=== PATIENT | male | born 1960 | race Caucasian/White ===

== ENCOUNTER 2020-10-28 05:48 | Day surgery (SDC) | payer OTHER ==
[2020-10-28] MEDS ORDERED: Lactated Ringers 1,000 ML IV SCH (07:00)
[2020-10-28] MEDS ORDERED: DIPRIVAN 200 MG/20 ML IV ONE ×2 (08:42→08:54)
--- NOTE | 2020-10-28 09:35 | OP ---
SURGERY DATE/TIME: 10/28/2020 0845 PREOPERATIVE DIAGNOSES: 1) Screening colonoscopy. 2) Family history of colon cancer. POSTOPERATIVE DIAGNOSES: 1) Sigmoid polyps x2. 2) Rectal polyps x2. PROCEDURE: Colonoscopy. SURGEON: Sonny Montero M.D. ANESTHESIA: MAC by Siddhartha Griffiths CRNA. ESTIMATED BLOOD LOSS: Minimal. SPECIMENS: There are four cold forceps polypectomies. DESCRIPTION OF PROCEDURE: After informed written consent was obtained, the patient was taken to the endoscopy suite. She was placed in left lateral decubitus position. Anesthesia was titrated to desired level of consciousness. A digital rectal exam showed normal sphincter tone and no internal lesions. The scope was inserted into the rectum and sequentially the entire colonic mucosa was traversed. The level of cecum was reached and verified with direct visualization of the ileocecal valve. Upon withdrawal there were two very small sessile polyps in the sigmoid colon region which were grasped with forceps and removed with minimal bleeding and sent for pathology testing. Likewise in the proximal rectum there were two very small, flat sessile polyps which were removed with cold forceps with minimal bleeding. Prior to withdrawal retroflexion showed no internal lesions. The scope was removed. The patient was transferred to the recovery room in good condition.
[2020-10-28 09:59] VITALS: BP 145/86; PULSE 58; O2SAT 96
== END 2020-10-28 10:05 | disposition home or self-care (01) ==
LOC: SDC 05:48
PROVIDERS: ATTEND Family Medicine
DX: Z12.11 Encounter for screening for malignant neoplasm of colon (principal); Z80.0 Family history of malignant neoplasm of digestive organs; D12.8 Benign neoplasm of rectum
CPT/HCPCS: 88305; J2704

== ENCOUNTER 2023-07-26 15:04 | Day surgery (SDC) | payer OTHER ==
[2023-07-26] MEDS ORDERED: XYLOCAINE-MPF 1% 5ML SDV IJ ONE (15:05)
[2023-07-26] MEDS ORDERED: Depo-Medrol 40 MG/ML IM ONE (15:05)
[2023-07-26] MEDS ORDERED: BUPIVACAINE 0.5% VIAL IJ ONE (15:05)
--- NOTE | 2023-07-26 16:47 | XRAY ---
26 seconds of fluoroscopy was used in surgery for a left intra-articular knee injection.
--- NOTE | 2023-07-26 16:47 | XRAY ---
Indication: Left knee injection. Intraoperative fluoroscopy provided for 26 seconds. 2 digital spot image submitted for interpretation demonstrates needle tip projecting over the left femur intercondylar notch. Small amount of contrast injected for needle tip placement. Correlate with intraoperative findings/report.
== END 2023-07-26 15:46 | disposition home or self-care (01) ==
LOC: SDC-PAIN 15:04
PROVIDERS: ATTEND Psychiatry & Neurology Pain Medicine
DX: M17.12 Unilateral primary osteoarthritis, left knee (principal)
CPT/HCPCS: 20610; 73560; 77002; J1030; Q9966

== ENCOUNTER 2023-09-13 15:10 | Day surgery (SDC) | payer OTHER ==
[2023-09-13] MEDS ORDERED: BUPIVACAINE 0.5% VIAL IJ ONE (15:11)
[2023-09-13] MEDS ORDERED: LIDOCAINE HCL 1% 50 MG/5 ML VL PF IJ ONE (15:11)
[2023-09-13] MEDS ORDERED: Depo-Medrol 40 MG/ML IM ONE (15:11)
--- NOTE | 2023-09-13 18:47 | XRAY ---
Indication: Right SI joint injection Intraoperative fluoroscopy provided for 12 seconds. Single digital spot image submitted for interpretation demonstrates posterior needle tip projecting over the right SI joint with small amount of contrast injected for needle tip placement. Correlate with intraoperative findings/report.
--- NOTE | 2023-09-14 08:49 | XRAY ---
12 seconds of fluoroscopy was used in surgery for a right sacroiliac joint injection.
== END 2023-09-13 17:05 | disposition home or self-care (01) ==
LOC: SDC-PAIN 15:10
PROVIDERS: ATTEND Psychiatry & Neurology Pain Medicine
DX: M46.1 Sacroiliitis, not elsewhere classified (principal)
CPT/HCPCS: 27096; 72170; 77002; J1010; J2001; Q9966; G0260

== ENCOUNTER 2023-11-22 07:59 | Day surgery (SDC) | payer OTHER ==
[2023-11-22] MEDS ORDERED: SYNVISC 16 MG/2 ML SYRINGE IU ONE (08:00)
[2023-11-22] MEDS ORDERED: LIDOCAINE HCL 1% 50 MG/5 ML VL PF IJ ONE (08:00)
--- NOTE | 2023-11-22 10:56 | XRAY ---
Indication: Left knee injection. Intraoperative fluoroscopy provided for 11 seconds. Single digital spot image submitted for interpretation demonstrates needle tip projecting over left femur intercondylar notch. Small amount of contrast injected for needle tip placement. Correlate with intraoperative findings/report.
--- NOTE | 2023-11-22 13:24 | XRAY ---
11 seconds of fluoroscopy was used in surgery for a left intra-articular knee injection.
== END 2023-11-22 10:36 | disposition home or self-care (01) ==
LOC: SDC-PAIN 07:59
PROVIDERS: ATTEND Psychiatry & Neurology Pain Medicine
DX: M17.12 Unilateral primary osteoarthritis, left knee (principal)
CPT/HCPCS: 20610; 73560; 77002; J2001; J7325; Q9966

== ENCOUNTER 2023-11-29 15:26 | Day surgery (SDC) | payer OTHER ==
[2023-11-29] MEDS ORDERED: LIDOCAINE HCL 1% 50 MG/5 ML VL PF IJ ONE (15:27)
[2023-11-29] MEDS ORDERED: SYNVISC 16 MG/2 ML SYRINGE IU ONE (15:27)
--- NOTE | 2023-11-29 19:12 | XRAY ---
Indication: Left knee injection. Intraoperative fluoroscopy provided for 8 seconds. Single digital spot images submitted for interpretation demonstrates needle tip projecting over left femur intercondylar notch. Small amount of contrast injected for needle tip placement. Correlate with intraoperative findings/report.
--- NOTE | 2023-12-01 07:57 | XRAY ---
8 seconds of fluoroscopy was used in surgery for a left intra-articular knee injection.
== END 2023-11-29 18:00 | disposition home or self-care (01) ==
LOC: SDC-PAIN 15:26
PROVIDERS: ATTEND Psychiatry & Neurology Pain Medicine
DX: M17.12 Unilateral primary osteoarthritis, left knee (principal)
CPT/HCPCS: 20610; 73560; 77002; J2001; J7325; Q9966

== ENCOUNTER 2023-12-06 15:16 | Day surgery (SDC) | payer OTHER ==
--- NOTE | 2023-12-06 20:28 | XRAY ---
Indication: Left knee injection. Intraoperative fluoroscopy provided for 20 seconds. 3 digital spot image submitted for interpretation demonstrates needle tip projecting over left femur intercondylar notch. Small amount of contrast injected for needle tip placement. Correlate with intraoperative findings/report.
--- NOTE | 2023-12-07 09:11 | XRAY ---
23 seconds of fluoroscopy was used in surgery for a left intra-articular knee injection.
== END 2023-12-06 18:48 | disposition home or self-care (01) ==
LOC: SDC-PAIN 15:16
PROVIDERS: ATTEND Psychiatry & Neurology Pain Medicine
DX: M17.12 Unilateral primary osteoarthritis, left knee (principal)
CPT/HCPCS: 20610; 73560; 77002; Q9966

== ENCOUNTER 2024-02-14 13:28 | Day surgery (SDC) | payer OTHER ==
[2024-02-14] MEDS ORDERED: Depo-Medrol 40 MG/ML IM ONE (13:29)
[2024-02-14] MEDS ORDERED: LIDOCAINE HCL 1% 50 MG/5 ML VL PF IJ ONE (13:29)
[2024-02-14] MEDS ORDERED: BUPIVACAINE 0.5% VIAL IJ ONE (13:29)
--- NOTE | 2024-02-14 20:10 | XRAY ---
Indication: Right SI joint injection Intraoperative fluoroscopy provided for 23 seconds. 2 digital spot image submitted for interpretation demonstrates posterior needle tip projecting over the right SI joint. Small amount of contrast injected for needle tip placement. Correlate with intraoperative findings/report.
--- NOTE | 2024-02-16 14:55 | XRAY ---
23 seconds of fluoroscopy used in surgery for a right SI joint injection.
== END 2024-02-14 16:22 | disposition home or self-care (01) ==
LOC: SDC-PAIN 13:28
PROVIDERS: ATTEND Psychiatry & Neurology Pain Medicine
DX: M46.1 Sacroiliitis, not elsewhere classified (principal)
CPT/HCPCS: 27096; 72170; 77002; J2001; Q9966; G0260

== ENCOUNTER 2025-02-22 11:08 | Emergency (ER) | payer OTHER ==
--- NOTE | 2025-02-22 11:23 | ERPHSYRPT ---
- History of Present Illness Time Seen by Provider: 02/22/25 11:23 Source: patient, family Physician History: This is an overweight 64-year-old white male patient who was mowing his lawn yesterday and felt something hit his right eye and has been irritated ever since. Patient has redness of his eye and has some tearing present. The area of burning and discomfort is the 9 o'clock position of the right eye. Timing/Duration: yesterday Location: right eye Severity: mild (To moderate) Apparent Injury: possibly Associated Symptoms: burning, sensitivity to light, redness, foreign body sensation Visual Assistive Devices: None Allergies/Adverse Reactions: No Known Drug Allergies Allergy (Verified 02/22/25 11:27) Home Medications: Amlodipine Besylate 1 tab PO DAILY 10/19/20 [History] Chlorthalidone 1 tab PO DAILY 10/19/20 [History] Hydralazine HCl 50 mg PO TID 10/19/20 [History] Labetalol HCl 1 tab PO BID 10/19/20 [History] Meloxicam 15 mg PO DAILY 10/19/20 [History] Tamsulosin HCl 0.4 mg [Flomax 0.4 MG] 1 cap PO DAILY 10/19/20 [History] Valsartan [Diovan] 1 tab PO DAILY 10/19/20 [History] Hx Tetanus, Diphtheria Vaccination/Date Given: (UNKNOWN) Hx Influenza Vaccination/Date Given: Yes Hx Pneumococcal Vaccination/Date Given: Yes Travel Risk - International Travel Have you traveled outside of the country in past 3 weeks: No - Emerging Infectious Disease Are you exhibiting symptoms associated with any current EIDs: No - Review of Systems Constitutional: No Symptoms Eyes: Eye Redness (Right eye), Tearing (Right eye) Ears, Nose, & Throat: No Symptoms Respiratory: No Symptoms Cardiac: No Symptoms Abdominal/Gastrointestinal: No Symptoms Genitourinary Symptoms: No Symptoms Musculoskeletal: No Symptoms Skin: No Symptoms Neurological: No Symptoms Psychological: No Symptoms Endocrine: No Symptoms Hematologic/Lymphatic: No Symptoms Immunological/Allergic: No Symptoms All Other Systems: Reviewed and Negative - Past Medical History Pertinent Past Medical History: Yes Respiratory History: No Pertinent History - Past Surgical History Past Surgical History: No - Social History Smoking Status: Never smoker Exposure to second hand smoke: No - Nursing Vital Signs Nursing Vital Signs: Initial Vital Signs Temperature 97.6 F 02/22/25 11:20 Pulse Rate 74 02/22/25 11:20 Respiratory Rate 16 02/22/25 11:20 Blood Pressure 130/69 02/22/25 11:20 O2 Sat by Pulse Oximetry 99 02/22/25 11:20 Pain Scale Pain Intensity 5 - Physical Exam General Appearance: no apparent distress, alert, obese Eye Exam: right eye: conjunctival inflammation (Conjunctivitis), corneal abrasion (9 o'clock position), left eye: normal inspection, bilateral eye: PERRL, EOMI Ears, Nose, Throat Exam: normal ENT inspection, moist mucous membranes Neck Exam: normal inspection, non-tender, supple Respiratory Exam: airway intact, No chest tenderness, No respiratory distress Gastrointestinal Exam: No tenderness Extremity Exam: normal inspection, normal range of motion, pelvis stable Neurologic: alert, oriented x 3, cooperative, 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, normal mood/affect, nml cerebellar function, nml station & gait, sensation nml Skin Exam: normal color, warm, dry Lymphatic: No adenopathy SpO2 Interpretation: normal O2 Delivery: Room Air - Course Nursing assessment & vital signs reviewed: Yes Ordered Tests: Medication Summary Discontinued Medications Generic Name Dose Route Start Last Admin Trade Name Freq PRN Reason Stop Dose Admin Fluorescein Sodium 1 mg 02/22/25 11:41 02/22/25 11:43 Fluorescein Sodium 1 Mg/Strip Strip OP 02/22/25 11:42 1 mg STAT ONE Administration Fluorescein Sodium Confirm 02/22/25 11:42 Fluorescein Sodium 1 Mg/Strip Strip Administered 02/22/25 11:43 Dose 1 mg OP .STK-MED ONE Tetracaine HCl 4 ml 02/22/25 11:40 02/22/25 11:43 Tetracaine Hcl/Pf 4 Ml Bottle OP 02/22/25 11:41 4 ml STAT STA Administration Tetracaine HCl Confirm 02/22/25 11:42 Tetracaine Hcl/Pf 4 Ml Bottle Administered 02/22/25 11:43 Dose 4 ml OP .STK-MED ONE - Progress Progress: improved, re-examined Progress Note: 02/22/25 12:34 My medical decision making and the assignment of low complexity to this patient's medical issue today is based on review of the patient's past medical history, reviewed the patient's medication list, reviewed patient drug allergy list, history present illness and physical findings on examination. The workup in this patient does not necessitate radiographic or laboratory studies. However we we will place tetracaine drops into the right eye followed by fluorescein test and black light to evaluate for abrasion of the cornea. We also will use magnification to evaluate for foreign body. Differential diagnosis includes right eye conjunctivitis, right eye foreign body, right eye corneal abrasion. Counseled pt/family regarding: diagnosis, need for follow-up, rad results Medical Desision Making - Independent Historian Additional History obtained from: Spouse - Diagnostic Testing Diagnostic test were ordered, analyzed, and reviewed by me: No - Risk of complications Low Risk: Low risk of morbidity from additional dx testing or treatment The pt has a mod risk of morbidity or mortality based on: Need for prescription drug management - Departure Departure Disposition: Home Clinical Impression: Right corneal abrasion Condition: Stable Critical Care Time: No Referrals: KRISTI POWERS [Primary Care Provider, [facility]] - Follow up/PCP as directed Additional Instructions: Place 2 drops of the antibiotic/steroid solution to the right eye 3-4 times a day for the next 5 days. Call your core winder machine operator on 02/24/2025, to make arrangements for follow-up appointment to be seen in the next 2 to 3 days. Use Tylenol and ibuprofen for pain control. Prescriptions: Jason/Poly/Hc Eye Drops [Cortisporin Eye Drops] 2 drops OP Q6H #7.5 ml
[2025-02-22 11:26] VITALS: PULSE 74; RESP 16; TEMP 97.6; O2SAT 99
[2025-02-22] MEDS ORDERED: TETRACAINE 0.5% STERI-UNIT SOL OP ONE (11:42)
[2025-02-22] MEDS ORDERED: Fluor-I-Strip/Ful-Flo OP ONE (11:42)
[2025-02-22] MEDS: Fluor-I-Strip/Ful-Flo OP ONE (11:43)
[2025-02-22] MEDS: TETRACAINE 0.5% STERI-UNIT SOL OP STA (11:43)
[2025-02-22 12:26] VITALS: BP 138/74
[2025-02-22] MEDS ORDERED: Cortisporin Eye Drops OP ONE (12:33)
[2025-02-22] MEDS: Cortisporin Eye Drops OP SCH (12:33)
== END 2025-02-22 12:44 | disposition home or self-care (01) ==
LOC: ED 11:08
DX: S05.01XA Injury of conjunctiva and corneal abrasion without foreign body, right eye, initial encounter (principal); W20.8XXA Other cause of strike by thrown, projected or falling object, initial encounter; Y93.H9 Activity, other involving exterior property and land maintenance, building and construction; Y92.238 Other place in hospital as the place of occurrence of the external cause; Y99.0 Civilian activity done for income or pay; Z79.899 Other long term (current) drug therapy